=== PATIENT | male | born 1995 | race Caucasian/White ===

== ENCOUNTER 2020-06-03 13:57 | Emergency (ER) | payer SELFPAY ==
[~2020-06-03] VITALS: Ht 175.3 cm; Wt 97.5 kg
--- NOTE | 2020-06-03 14:21 | NUR ---
CARLOS FROM STREET TO ER BED 13. AAOX4. NOT IN RESP DISTRESS, BREATHING EVEN AND UNLABORED. BROUGHT IN FOR BEING FOUND UNCONSCIOUS. PT WAS GIVEN NARCAN IN FIELD BY THE EMS. PT AWOKEN AFTER GIVING NARCAN. PER PT, HE SNORTED A LINE WHICH HE THOUGHT WAS COCAINE. MD AT BEDSIDE FOR EVAL. AWAITING FOR ORDERS
[2020-06-03] MEDS ORDERED: NALOXONE PREFILLED SYRINGE 2 MG/2 ML SYRINGE ONE (14:58)
[2020-06-03] MEDS ORDERED: NALOXONE PREFILLED SYRINGE 2 MG/2 ML SYRINGE IV ONE (15:00)
--- NOTE | 2020-06-03 15:09 | NUR ---
PLEASE CALL [phone] - FRIEND
--- NOTE | 2020-06-03 19:19 | NUR ---
pt in bed sleeping. nad noted. breathing even adn unlabored. arrousable.
--- NOTE | 2020-06-03 19:34 | NUR ---
IV removed. Catheter intact and site benign. Pressure and 4x4 applied to site. No bleeding noted. Patient discharged to home in stable condition. Written and verbal after care instructions given. Patient verbalizes understanding of instruction and RX. PT ambulated with steady gait. Signed homeless waiver. Provided with food.
[2020-06-03 19:35] VITALS: BP 123/71
== END 2020-06-03 19:36 | disposition home or self-care (01) ==
LOC: ER 14:00
DX: T40.2X1A Poisoning by other opioids, accidental (unintentional), initial encounter (principal); Y92.89 Other specified places as the place of occurrence of the external cause
CPT/HCPCS: 96374; 99285; J2310

== ENCOUNTER 2023-07-10 05:59 | Emergency (ER) | payer MEDICAID, OTHER ==
[~2023-07-10] VITALS: Ht 172.7 cm; Wt 111.1 kg
[2023-07-10] MEDS ORDERED: SULF1TAB48 PO (08:20)
[2023-07-10] MEDS ORDERED: HYDROCODONE/APAP 5/325MG TABLET PO ONE (08:30)
[2023-07-10 08:32] VITALS: BP 141/81; TEMP 98; O2SAT 100
== END 2023-07-10 08:32 | disposition home or self-care (01) ==
LOC: ER 06:07
DX: L02.11 Cutaneous abscess of neck (principal); Z79.899 Other long term (current) drug therapy

== ENCOUNTER 2024-12-18 04:01 | Emergency (ER) | payer OTHER ==
[~2024-12-18] VITALS: Ht 170.2 cm; Wt 117.9 kg
[~2024-12-18 04:01] MED LIST: SULF1TAB48 PO
[2024-12-18 05:03] VITALS: BP 133/90; TEMP 98.1; O2SAT 98
== END 2024-12-18 05:04 | disposition home or self-care (01) ==
LOC: ER 04:01
DX: H11.32 Conjunctival hemorrhage, left eye (principal)